=== PATIENT | female | born 1980 | race Caucasian/White ===

== ENCOUNTER → 2017-06-15 | Day surgery (SDC) | payer OTHER ==
[2017-06-14 09:27] LABS: BASOPHILS % 0.4 % (0.0-1.0); EOSINOPHILS # (AUTO) 0.1 (0.0-0.4); EOSINOPHILS % 1.4 % (0.0-6.0); HEMOGLOBIN 13.2 g/dL (12.0-16.0); LYMPHOCYTES # (AUTO) 2.1 (1.0-3.2); LYMPHOCYTES % 27.4 % (18.0-39.1); MEAN CORPUSCULAR HEMOGLOBIN 28.3 pg (28-32); MEAN CORPUSCULAR VOLUME 85.8 fL (81-99); MONOCYTES # (AUTO) 0.5 (0.2-0.8); NEUTROPHILS % 64.5 % (38.7-80.0); PLATELET COUNT 298 x10e3/uL (140-360); RED BLOOD COUNT 4.66 x10e6/uL (3.6-5.1); RED CELL DISTRIBUTION WIDTH 14.4 % (11.7-14.4)
[~2017-06-15] MED LIST: COLESTIPOL HCL1 GM PO; DICYCLOMINE HCL10 MG PO; FENTANYL CITRATE/PF 100MCG/2 ML INJ ONE; GLUCAGON FOR INJ 1 MG VIAL ONE; LIDOCAINE HCL 2% LOCAL INJ 5 ML SDV VIAL INJ ONE; MIDAZOLAM HCL 2 MG/2 ML VIAL ONE; MULTI-VITAMIN1 EACH; TYLENOL; ZOFRAN ODT4 MG PO; [UNRECOGNIZED DRUG - OTHER]
--- OUTSIDE RECORDS SUMMARY | 2017-06-15 09:56 | XMS REPORT | Clinical Summary ---
Author Author [facility] Address Unknown Phone Unavailable Care Team Providers Care Stitch Welder Name Role Phone PCP Unavailable Allergies No Known Allergies Current Medications Prescription Sig. Disp. Refills Start End Date Status Date cetirizine (ZYRTEC) 10 MG Take 10 mg by mouth as Active tablet needed for Allergies. etonogestrel-ethinyl Place 1 each vaginally Active estradiol (NUVARING) every 28 days Insert 0.12-0.015 mg/24 hr vaginally and leave in vaginal ring place for 3 consecutive weeks, then remove for 1 week. . HYDROCODONE/ACETAMINOPHEN Take by mouth. Active (NORCO ORAL) Active Problems Problem Noted Date Chronic cholecystitis 04/02/2017 Encounters Date Type Specialty Care Team Description 04/02/2017 Hospital Debbie Christine MD Chronic cholecystitis Encounter (Primary Dx) 04/02/2017 Procedure Pass 04/02/2017 Surgery Debbie Christine MD LAPAROSCOPY,CHOLECYSTECTO MY 04/01/2017 Anesthesia Yon Billingsley Event MD after 06/14/2016 Social History Tobacco Use Types Packs/Day Years Used Date Light Tobacco Smoker Smokeless Tobacco: Never Used Tobacco Cessation: Counseling Given: Yes Comments: handout to be given dos Alcohol Use Drinks/Week oz/Week Comments Yes socially Sex Assigned at Date Recorded Not on file Last Filed Vital Signs Vital Sign Reading Time Taken Blood Pressure 99/51 04/02/2017 1:35 PM [employer] Pulse 56 04/02/2017 1:35 PM [employer] Temperature 37.1 C (98.8 F) 04/02/2017 1:35 PM [employer] Respiratory Rate 18 04/02/2017 1:35 PM [employer] Oxygen Saturation 95% 04/02/2017 1:35 PM [employer] Inhaled Oxygen - - Concentration Weight 96.4 kg (212 lb 8 oz) 04/02/2017 10:38 AM [employer] Height 170.2 cm (5' 7") 04/02/2017 10:38 AM [employer] Body Mass Index 33.28 04/02/2017 10:38 AM [employer] Plan of Treatment Not on file Procedures Procedure Name Priority Date/Time Associated Diagnosis Comments LAPAROSCOPY,CHOLECYSTECTO 04/02/2017 Gallstones MY 11:15 AM [employer] after 06/14/2016 Results * Tissue Exam (04/02/2017 11:48 AM) Component Value Ref Range Case Report Surgical Pathology Report Case: [id number] Authorizing Provider: Debbie Christine MD Collected: 04/02/2017 1148 Ordering Location: [facility] Received: 04/02/2017 1358 SERVICES Pathologist: Negro Lopez MD Specimen: Gallbladder DIAGNOSIS GALLBLADDER, CHOLECYSTECTOMY: - CHOLELITHIASIS - CHRONIC CHOLECYSTITIS Signing Pathologist Direct Phone Line: [phone] CPT Code(s) 37230 CLINICAL HISTORY Gallstones SPECIMEN SOURCE Gallbladder GROSS DESCRIPTION The specimen is received in formalin-filled container labeled with the patient's information and labeled "gallbladder". It consists of a previously opened gallbladder measuring 1-0 x 2.5 cm with a gallbladder wall thickness up to 0.2 cm. The container has three green smooth stones measuring up to 2.5 cm. The gallbladder lumen is filled with green thick fluid. The mucosa is giles and velvety with no abnormality seen grossly. Section code: A1, margin en face; A2, gallbladder wall. CG/ew MICROSCOPIC DESCRIPTION Performed Specimen Performing Laboratory Tissue - Gallbladder [facility] [address] [address] * POCT , urine (04/02/2017 10:44 AM) Component Value Ref Range Test Urine, POC Negative Control line present?, Yes POC Background clear?, POC Yes UPT Cassette Lot #, POC [id number] UPT Cassette Expiration 10-18-2018 Date, POC after 06/14/2016
--- OUTSIDE RECORDS SUMMARY | 2017-06-15 09:56 | XMS REPORT ---
Author Author [facility] Address Unknown Phone Unavailable Care Team Providers Care Rodeo Rider Name Role Phone JO CHRISTINE Unavailable Unavailable Problems This patient has no known problems. Allergies, Adverse Reactions, Alerts This patient has no known allergies or adverse reactions. Medications This patient has no known medications. Results Test Description Test Time Test Comments Text Results Atomic Results Result Comments TISSUE EXAM 2017-04-03 13:34:00 Surgical Pathology Report Case: [id number] Authorizing Provider: Jo Christine MD Collected: 04/02/2017 1148 Ordering Location: [facility] Received: 2017 1358 SERVICES Pathologist: Negro Lopez MD Specimen: Gallbladder GALLBLADDER, CHOLECYSTECTOMY: - CHOLELITHIASIS - CHRONIC CHOLECYSTITIS Signing Pathologist Direct Phone Line: [phone] signed by Negro Lopez MD on 04/03/2017 at 1:34 [id number] Gallbladder The specimen is received in formalin-filled container [...] giles and velvety with no abnormality seen grossly.Section code: A1, margin en face; A2, gallbladder wall. CG/ewPerformed
--- NOTE | 2017-06-15 13:45 | Operative Report ---
DATE OF PROCEDURE: June 15, 2017 PROCEDURE PERFORMED: Esophagogastroduodenoscopy with biopsy. INDICATIONS FOR ESOPHAGOGASTRODUODENOSCOPY: Recurrent bouts of nausea and vomiting. MEDICATION: Patient was done under MAC. Please see anesthesiologist's note. PROCEDURE: With patient in the left lateral decubitus position, flexible fiberoptic Olympus gastroscope was introduced into the esophagus under direct visualization without any difficulty. There was some patchy erythema noted in distal esophagus. Also there were some erosions noted. The scope was then advanced with ease into the stomach, traversing a small sliding hiatal hernia. Mucosa overlying the antrum and the body revealed some patchy intense erythema and mild to moderate edema and biopsies were obtained and sent to stain for H. pylori. Also some hyperplastic appearing polyps were noted in the body of the stomach. Some were partially excised with cold biopsy forceps. Pylorus appeared to be of normal contour and shape. It was intubated with ease and the scope was advanced all the way to the 2nd portion of the duodenum. The scope was then withdrawn slowly and mucosa overlying the proximal 2nd portion and the duodenal bulb appeared to be within normal limits. The scope was then withdrawn back into the stomach and retroflexed. The mucosa overlying the fundus and the cardia appeared to be within normal limits. The scope was then straightened out. The stomach was decompressed. Scope was subsequently withdrawn. Patient tolerated the procedure well. IMPRESSION: 1. Distal erosive esophagitis. 2. Small hiatal hernia. 3. Gastritis biopsied. Biopsy sent to stain for H. pylori. 4. Gastric polyps, body, partially excised per the cold biopsy forceps. PLAN: Follow up histology. Initiate Protonix 40 mg 1 p.o. q.a.m. a.c. Job#: [id number]
== END | disposition home or self-care (01) ==
LOC: OR 09:55
PROVIDERS: ATTEND Internal Medicine Gastroenterology
DX: K29.70 Gastritis, unspecified, without bleeding (principal); K31.7 Polyp of stomach and duodenum; K22.10 Ulcer of esophagus without bleeding; K44.9 Diaphragmatic hernia without obstruction or gangrene; Z90.49 Acquired absence of other specified parts of digestive tract; R19.7 Diarrhea, unspecified; R15.2 Fecal urgency; Z01.812 Encounter for preprocedural laboratory examination; Z68.34 Body mass index [BMI] 34.0-34.9, adult
CPT/HCPCS: 36415; 43239; 81025; 85025; J1610; J2001; J2250